=== PATIENT | male | born 1970 | race Caucasian/White ===

== ENCOUNTER → 2023-10-17 06:22 | Day surgery (SDC) | payer OTHER, SELFPAY | LOC: GI 06:22 | PROVIDERS: ATTENDING PHYSICIAN Internal Medicine Gastroenterology | DX: Z12.11 Encounter for screening for malignant neoplasm of colon (principal); K64.8 Other hemorrhoids | CPT/HCPCS: G0121 ==

== ENCOUNTER → 2024-11-15 12:39 | Outpatient (REF) | payer OTHER, SELFPAY | LOC: RAD 12:39 | PROVIDERS: ATTENDING PHYSICIAN Nurse Practitioner Adult Health | DX: M54.50 Low back pain, unspecified (principal); M54.16 Radiculopathy, lumbar region | CPT/HCPCS: 72110 ==

== ENCOUNTER 2025-01-09 17:20 | Emergency (ER) | payer OTHER, SELFPAY ==
[2025-01-09 17:44] VITALS: BP 166/100
[2025-01-09 20:31] VITALS: BP 140/87; BMI 27.4
[2025-01-09] MEDS: OCUFLOX 1 DROP OPHTH (21:42)
--- NOTE | 2025-01-09 22:11 | ED.GENMED ---
History of Present Illness
General
Chief Complaint: Eye Problems
Source: patient
Exam Limitations: none
Time Seen by Provider: 01/09/25 20:15
Nursing documentation reviewed up to this point in time: agreed with
History of Present Illness
History of Present Illness:
Patient to ED with complaint of blurred right vision. States he tried to put in his contacts this afternoon but right contact felt uncomfortable. He removed contact lens and put his glasses back on. He then noticed right vision was no longer
crisp. Brought self to ED for eval.
Past History
Past History
ED Past Medical History: Psychiatric (anxiety/depression)
Review of Systems
Review of Systems
Allergies reviewed?: Yes
All Other Systems: ROS reviewed and negative except as documented in HPI and ROS
Constitutional: Reports no symptoms
EENT: Reports other (blurred right vision)
Respiratory: Reports no symptoms
Cardiac: Reports no symptoms
ABD/GI: Reports no symptoms
: Reports no symptoms
Musculoskeletal: Reports no symptoms
Skin: Reports no symptoms
Neurological: Reports no symptoms
Psychiatric: Reports no symptoms
Phy Exam
General Physical Exam
General Presentation: well appearing and no apparent distress
General age: appears stated age
General Skin: warm and dry
General Habitus: normal
Eye Exam
Eye Exam: PERRL, EOMI, conjunctiva normal and globe normal
Eye Exam General: PERRL: bilateral and EOM intact: bilateral
Pupil Exam: Bilateral: round and reactive
Conjunctival Changes: bilateral: none
Cornea Exam: abrasion: Right (center, small superficial)
Type of Exam: slit lamp, simple and fluorescein
Neurological Exam
Neurological Exam: alert, oriented x3, CN II-XII intact, no motor deficits, no sensory deficits, speech normal and normal gait
Mental
Mental Status: oriented to person, oriented to place, oriented to time and usual mental status
Cranial
Cranial Nerves: normal and no facial asymetry
EOM (CN3/4/6): intact and other (No nystagmus)
Motor
Seizure Activity: none
Gait: normal
Tremors: none
Other Movement Disorders: none
Right upper extremity: 4
Right lower extremity: 4
Left upper extremity: 4
Left lower extremity: 4
Bilateral upper extremities: 4
Bilateral lower extremities: 4
Sensory
Sensory Exam: intact
Musculoskeletal Exam
Musculoskeletal Exam: full ROM and neuro vasc intact
Skin Exam
Skin Exam: normal color, warm/dry and no rash
Psychiatric Exam
Psychiatric Exam: normal mood/affect
Course
Orders/Labs/Results
Orders:
Orders
01/09/25 18:03
CT Head W/o Iv Contrast Urgent
Comment:
Reason For Exam: right sided ehadache w/ blurry vision
01/09/25 20:26
Fluorescein Sodium [Ful-Halley] 1 mg .ROUTE .STK-MED ONE
Tetracaine HCl [Tetracaine 0.5% Ophthalmic Solution] 1 drop .ROUTE .STK-MED ONE
01/09/25 21:13
Ofloxacin [Ocuflox] See Dose Instructions OTIC NOW STA
01/09/25 21:19
Ofloxacin [Ocuflox] See Dose Instructions OPHTH NOW STA
01/09/25 21:07
01/09/25 21:06
Vital Signs
Initial and Last Documented VS:
Initial Vital Signs
Temp Pulse Resp BP Pulse Ox
98.9 F 90 18 166/100 97
01/09/25 17:44 01/09/25 17:44 01/09/25 17:44 01/09/25 17:44 01/09/25 17:44
Last Documented Vital Signs
Temp Pulse Resp BP Pulse Ox
98.9 F 75 18 140/87 98
01/09/25 17:44 01/09/25 20:31 01/09/25 17:44 01/09/25 20:31 01/09/25 20:31
*Radiology
Radiology exam reviewed: radiology read reviewed
*Pulse Oximetry
Patient hypoxic: no
*Critical Care Note
Total Time (30-74mins, 75-104mins- exclusive of procedures): Not Applicable
Update Note
Update Note:
Patient to ED for eval of right blurred vision after inserting contact lens. Slit lamp exam reveals a small superficial defect in the center of cornea. No foreign body. Limited posterior exam - no bleeding noted, no evidence of retinal
detachment. WIll place on occuflox and he will follow upw ith his warp placer in the AM.
CT results reviewed. Incidental finding of Chiari I malformation. Patient was unaware of this. Discussed this with him. I do not feel that his symptoms tonight are a result of the CHiari 1. Discussed patient presentation and findings [facility]
Jan who agrees with plan as is. Patient will follow up [facility] PCP regarding is CT results.
ED Attending Note
-
Portions of this chart may have been created with voice recognition software.� Occasional wrong word or��sound alike� substitutions may have occurred due to the inherent limitations of voice recognition software.
Discharge Plan
Departure
Patient Disposition: Home (Routine Discharge)
Date of Disposition: 01/09/25
Time of Disposition: 21:13
Patient with high blood pressure during this ER visit?: No
Condition: Good
Covid-19: Not Applicable
Discharge Problem:
Abrasion, corneal
Instructions: Corneal Abrasion (DC), How to Use Eye Drops
Prescriptions:
New
ofloxacin [Ocuflox] 0.3 % drops
1 drp ophthalmic (eye) QID Qty: 5 0RF
No Action
lamotrigine 100 MG tablet
100 mg PO BID
alprazolam 0.25 MG tablet,disintegrating
0.25 mg PO BID
Activity Restrictions/Additional Instructions:
Follow up with your eye doctor in the AM
Interventions
Interventions:
*Risk Screen - Suicide Last Done: 01/09/25 17:46
*General Assessment Last Done: 01/09/25 17:46
*Neglect/Abuse Screening Last Done: 01/09/25 17:46
*ED- Fall Risk Assessment Last Done: 01/09/25 21:43
*ED COVID-19 Vaccine History Last Done: 01/09/25 17:46
*Nursing Disposition Last Done: 01/09/25 21:43
Discharge Date and Time
Discharge Date/Time: 01/09/25 21:44
Print Language: PALESTINIAN
== END 2025-01-09 21:44 | disposition home or self-care (01) ==
LOC: EMR 17:20
PROVIDERS: EMERGENCY PHYSICIAN Student in an Organized Health Care Education/Training Program; FAMILY PHYSICIAN Nurse Practitioner Adult Health
DX: S05.01XA Injury of conjunctiva and corneal abrasion without foreign body, right eye, initial encounter (principal); X58.XXXA Exposure to other specified factors, initial encounter; G93.5 Compression of brain
CPT/HCPCS: 99284; 70450

== ENCOUNTER → 2025-03-04 13:59 | Outpatient (REF) | payer OTHER, SELFPAY | LOC: RAD 13:59 | PROVIDERS: ATTENDING PHYSICIAN Nurse Practitioner Adult Health | DX: M54.2 Cervicalgia (principal); Z92.241 Personal history of systemic steroid therapy; R49.0 Dysphonia; R13.19 Other dysphagia | CPT/HCPCS: 72050 ==

== ENCOUNTER 2025-03-11 08:38 | Outpatient (RCR) | payer OTHER, SELFPAY | END 2025-03-11 23:59 | disposition home or self-care (01) | LOC: RPT 08:38 | PROVIDERS: ATTENDING PHYSICIAN Psychiatry & Neurology Neurology; FAMILY PHYSICIAN Nurse Practitioner Adult Health | DX: M54.6 Pain in thoracic spine (principal) | CPT/HCPCS: 97110; 97112; 97162; 97530 ==

== ENCOUNTER 2025-04-07 15:00 | Outpatient (RCR) | payer OTHER, SELFPAY | END 2025-04-07 23:59 | disposition home or self-care (01) | LOC: RPT 15:00 | PROVIDERS: ATTENDING PHYSICIAN Psychiatry & Neurology Neurology; FAMILY PHYSICIAN Nurse Practitioner Adult Health | DX: M54.12 Radiculopathy, cervical region (principal); M54.6 Pain in thoracic spine (principal); Z73.6 Limitation of activities due to disability | CPT/HCPCS: 97110; 97112; 97140 ==

== ENCOUNTER 2025-05-12 17:06 | Outpatient (RCR) | payer OTHER, SELFPAY | END 2025-05-12 23:59 | disposition home or self-care (01) | LOC: RPT 17:06 | PROVIDERS: ATTENDING PHYSICIAN Psychiatry & Neurology Neurology; FAMILY PHYSICIAN Nurse Practitioner Adult Health | DX: M54.12 Radiculopathy, cervical region (principal); Z73.6 Limitation of activities due to disability; M54.6 Pain in thoracic spine; M62.81 Muscle weakness (generalized) | CPT/HCPCS: 97110; 97112 ==

== ENCOUNTER 2025-06-07 16:59 | Outpatient (RCR) | payer OTHER, SELFPAY | END 2025-06-07 23:59 | disposition home or self-care (01) | LOC: RPT 16:59 | PROVIDERS: ATTENDING PHYSICIAN Psychiatry & Neurology Neurology; FAMILY PHYSICIAN Nurse Practitioner Adult Health | DX: M54.12 Radiculopathy, cervical region (principal); Z73.6 Limitation of activities due to disability; M54.6 Pain in thoracic spine; M62.81 Muscle weakness (generalized) | CPT/HCPCS: 97110; 97112; 97140; 97530 ==